=== PATIENT | male | born 1975 | race Caucasian/White ===

== ENCOUNTER 2023-12-07 19:24 | Emergency (ER) | payer OTHER ==
[2023-12-07 20:11] LABS: HCT 46.2 % (39.0-53.0); MCH 38.6 pg (25.0-35.0); MCHC 32.6 g/dL (31.0-37.0); MCV 118.3 fL (80.0-100.0); Macrocytosis Marked; RDW 14.8 % (11.5-15.5); WBC 2.6 k/uL (3.8-10.6)
[2023-12-07 20:23] LABS: INR 1.1 (<1.2); Prothrombin Time 11.5 sec (10.0-12.5)
[2023-12-07 20:30] LABS: ALT 98 U/L (4-49); AST 340 U/L (17-59); African American GFR (CKD) >90 (>60 ml/min/1.73 sqM); Albumin 4.4 g/dL (3.5-5.0); Alkaline Phosphatase 96 U/L (38-126); Anion Gap 15 mmol/L; Blood Urea Nitrogen 5 mg/dL (9-20); Calcium 9.1 mg/dL (8.4-10.2); Carbon Dioxide 22 mmol/L (22-30); Chloride 107 mmol/L (98-107); Glucose 100 mg/dL (74-99); Non-African American GFR(CKD) >90 (>60 ml/min/1.73 sqM); Potassium 3.2 mmol/L (3.5-5.1); Sodium 144 mmol/L (137-145); Total Bilirubin 1.3 mg/dL (0.2-1.3); Total Protein 7.4 g/dL (6.3-8.2)
--- NOTE | 2023-12-07 20:48 | ED ---
Dizziness HPI - General Source: patient, family, EMS, RN notes reviewed Mode of arrival: EMS Limitations: no limitations <Victor Hugo Castelan - Last Filed: 12/07/23 20:48> <Rosy Sequeira - Last Filed: 12/08/23 01:34> - General Chief Complaint: Dizziness Stated Complaint: Numbness Arms and Neck Time Seen by Provider: 12/07/23 20:47 - History of Present Illness Initial Comments: Quick note 48-year-old male presenting to the ED with a chief complaint of paresthesias. Patient states this afternoon started to experience paresthesias of bilateral upper extremities. Also notes started to experience a headache as well. (Victor Hugo Castelan) - Related Data Allergies Allergy/AdvReac Type Severity Reaction Status Date / Time No Known Allergies Allergy Verified 12/07/23 19:56 Review of Systems ROS Other: All systems not noted in ROS Statement are negative. <Victor Hugo Castelan - Last Filed: 12/07/23 20:48> ROS Other: All systems not noted in ROS Statement are negative. <Rosy Sequeira - Last Filed: 12/08/23 01:34> ROS Statement: Those systems with pertinent positive or pertinent negative responses have been documented in the HPI. Past Medical History Additional Past Medical History / Comment(s): Alcoholism - Stage 3 liver cirrhosis Past Surgical History: No Surgical Hx Reported Smoking Status: Current every day smoker Past Alcohol Use History: Abuse, Daily, Heavy Past Drug Use History: Marijuana <Victor Hugo Castelan - Last Filed: 12/07/23 20:48> General Exam Limitations: no limitations <Victor Hugo Castelan - Last Filed: 12/07/23 20:48> - General Exam Comments Initial Comments: Visual Physical Exam Vital signs reviewed General: Well-appearing, nontoxic, no acute distress. Head: Normocephalic, atraumatic Eyes: PERRLA, EOMI ENT: Airway patent Chest: Nonlabored breathing Skin: No visual rash, normal skin tone Neuro: Alert and oriented 3 Musculoskeletal: No gross abnormalities (Victor Hugo Castelan) Course Vital Signs 12/07/23 12/07/23 12/08/23 19:52 22:57 00:10 Temperature 97.7 F 98.2 F Pulse Rate 124 H 113 H 101 H Respiratory 18 16 17 Rate Blood Pressure 127/93 141/76 163/114 O2 Sat by Pulse 98 99 98 Oximetry Medical Decision Making - Lab Data Result diagrams: 12/07/23 20:02 12/07/23 20:02 <Victor Hugo Castelan - Last Filed: 12/07/23 20:48> - Lab Data Result diagrams: 12/07/23 20:02 12/07/23 20:02 <HuaRosy Zaria - Last Filed: 12/08/23 01:34> - Medical Decision Making Quicknote portion performed. Signed Victor Hugo Castelan PA-C (Victor Hugo Castelan) Was pt. sent in by a medical professional or institution (, PA, FOREST RESOURCE SPECIALIST, urgent care, hospital, or penitentiary...) When possible be specific @ -[No] Did you speak to anyone other than the patient for history (EMS, parent, family, police, friend...)? What history was obtained from this source @ -[No] Did you review nursing and triage notes (agree or disagree)? Why? @ -[I reviewed and agree with nursing and triage notes] Were old charts reviewed (outside hosp., previous admission, EMS record, old EKG, old radiological studies, urgent care reports/EKG's, penitentiary records)? Report findings @ -[No old charts were reviewed] Differential Diagnosis (chest pain, altered mental status, abdominal pain women, abdominal pain men, vaginal bleeding, weakness, fever, dyspnea, syncope, headache, dizziness, GI bleed, back pain, seizure, CVA, palpatations, mental health, musculoskeletal)? @ -[not applicable] EKG interpreted by me (3pts min.). @ -Yes and demonstrates sinus tachycardia with a rate of 112. SC interval 116. QRS 86. QTc of 392. No acute ST segment elevations or depressions X-rays interpreted by me (1pt min.). @ -[None done] CT interpreted by me (1pt min.). @ -[None done] U/S interpreted by me (1pt. min.). @ -[None done] What testing was considered but not performed or refused? (CT, X-rays, U/S, labs)? Why? @ -[None] What meds were considered but not given or refused? Why? @ -[None] Did you discuss the management of the patient with other professionals (professionals i.e. , PA, FOREST RESOURCE SPECIALIST, lab, RT, psych nurse, social service technician, beeswax bleacher, teacher, parking regulation enforcement officer, family preservation caseworker)? Give summary @ -[No] Was smoking cessation discussed for >3mins.? @ -[No] Was critical care preformed (if so, how long)? @ -[No] Were there social determinants of health that impacted care today? How? (Homelessness, low income, unemployed, alcoholism, drug addiction, transportation, low edu. Level, literacy, decrease access to med. care, detention, rehab)? @ -[No] Was there de-escalation of care discussed even if they declined (Discuss DNR or withdrawal of care, Hospice)? DNR status @ -[No] What co-morbidities impacted this encounter? (DM, HTN, Smoking, COPD, CAD, Cancer, CVA, ARF, Chemo, Hep., AIDS, mental health diagnosis, sleep apnea, morbid obesity)? @ -[None] Was patient admitted / discharged? Hospital course, mention meds given and route, prescriptions, significant lab abnormalities, going to OR and other pertinent info. @ -[hospital course] Undiagnosed new problem with uncertain prognosis? @ -[No] Drug Therapy requiring intensive monitoring for toxicity (Heparin, Nitro, Insul in, Cardizem)? @ -[No] Were any procedures done? @ -[No] Diagnosis/symptom? @ -[default] Acute, or Chronic, or Acute on Chronic? @ -[default] Uncomplicated (without systemic symptoms) or Complicated (systemic symptoms)? @ -[default] Side effects of treatment? @ -[No] Exacerbation, Progression, or Severe Exacerbation? @ -[No] Poses a threat to life or bodily function? How? (Chest pain, USA, IA, pneumonia, PE, COPD, DKA, ARF, appy, cholecystitis, CVA, Diverticulitis, Homicidal, Suicidal, threat to staff... and all critical care pts) @ -[No] (Rosy Sequeira) - Lab Data Lab Results 12/07/23 12/07/23 12/07/23 Range/Units 20:02 20:02 20:02 WBC 2.6 L (3.8-10.6) k/uL RBC 3.90 L (4.30-5.90) m/uL Hgb 15.0 (13.0-17.5) gm/dL Hct 46.2 (39.0-53.0) % MCV 118.3 H (80.0-100.0) fL MCH 38.6 H (25.0-35.0) pg MCHC 32.6 (31.0-37.0) g/dL RDW 14.8 (11.5-15.5) % Plt Count 84 L (150-450) k/uL MPV 11.0 Neutrophils % (Manual) 45 % Lymphocytes % (Manual) 42 % Monocytes % (Manual) 9 % Eosinophils % (Manual) 3 % Basophils % (Manual) 1 % Neutrophils # (Manual) 1.17 L (1.3-7.7) k/uL Lymphocytes # (Manual) 1.09 (1.0-4.8) k/uL Monocytes # (Manual) 0.23 (0-1.0) k/uL Eosinophils # (Manual) 0.08 (0-0.7) k/uL Basophils # (Manual) 0.03 (0-0.2) k/uL Nucleated RBCs 0 (0-0) /100 WBC Manual Slide Review Performed Macrocytosis Marked A PT 11.5 (10.0-12.5) sec INR 1.1 (<1.2) Sodium 144 (137-145) mmol/L Potassium 3.2 L (3.5-5.1) mmol/L Chloride 107 (98-107) mmol/L Carbon Dioxide 22 (22-30) mmol/L Anion Gap 15 mmol/L BUN 5 L (9-20) mg/dL Creatinine 0.87 (0.66-1.25) mg/dL Est GFR (CKD-EPI)AfAm >90 (>60 ml/min/1.73 sqM) Est GFR (CKD-EPI)NonAf >90 (>60 ml/min/1.73 sqM) Glucose 100 H (74-99) mg/dL Calcium 9.1 (8.4-10.2) mg/dL Total Bilirubin 1.3 (0.2-1.3) mg/dL AST 340 H (17-59) U/L ALT 98 H (4-49) U/L Alkaline Phosphatase 96 (38-126) U/L Troponin I (0.000-0.034) ng/mL Total Protein 7.4 (6.3-8.2) g/dL Albumin 4.4 (3.5-5.0) g/dL Urine Color Urine Appearance (Clear) Urine pH (5.0-8.0) Ur Specific [place] (1.001-1.035) Urine Protein (Negative) Urine Glucose (UA) (Negative) Urine Ketones (Negative) Urine Blood (Negative) Urine Nitrite (Negative) Urine Bilirubin (Negative) Urine Urobilinogen (<2.0) mg/dL Ur Leukocyte Esterase (Negative) Urine RBC (0-5) /hpf Urine WBC (0-5) /hpf Amorphous Sediment (None) /hpf Hyaline Casts (0-2) /lpf Urine Mucus (None) /hpf 12/07/23 12/07/23 Range/Units 20:02 22:55 WBC (3.8-10.6) k/uL RBC (4.30-5.90) m/uL Hgb (13.0-17.5) gm/dL Hct (39.0-53.0) % MCV (80.0-100.0) fL MCH (25.0-35.0) pg MCHC (31.0-37.0) g/dL RDW (11.5-15.5) % Plt Count (150-450) k/uL MPV Neutrophils % (Manual) % Lymphocytes % (Manual) % Monocytes % (Manual) % Eosinophils % (Manual) % Basophils % (Manual) % Neutrophils # (Manual) (1.3-7.7) k/uL Lymphocytes # (Manual) (1.0-4.8) k/uL Monocytes # (Manual) (0-1.0) k/uL Eosinophils # (Manual) (0-0.7) k/uL Basophils # (Manual) (0-0.2) k/uL Nucleated RBCs (0-0) /100 WBC Manual Slide Review Macrocytosis PT (10.0-12.5) sec INR (<1.2) Sodium (137-145) mmol/L Potassium (3.5-5.1) mmol/L Chloride (98-107) mmol/L Carbon Dioxide (22-30) mmol/L Anion Gap mmol/L BUN (9-20) mg/dL Creatinine (0.66-1.25) mg/dL Est GFR (CKD-EPI)AfAm (>60 ml/min/1.73 sqM) Est GFR (CKD-EPI)NonAf (>60 ml/min/1.73 sqM) Glucose (74-99) mg/dL Calcium (8.4-10.2) mg/dL Total Bilirubin (0.2-1.3) mg/dL AST (17-59) U/L ALT (4-49) U/L Alkaline Phosphatase (38-126) U/L Troponin I <0.012 (0.000-0.034) ng/mL Total Protein (6.3-8.2) g/dL Albumin (3.5-5.0) g/dL Urine Color Dark Yellow Urine Appearance Clear (Clear) Urine pH 6.0 (5.0-8.0) Ur Specific [place] 1.022 (1.001-1.035) Urine Protein 1+ H (Negative) Urine Glucose (UA) Negative (Negative) Urine Ketones Negative (Negative) Urine Blood Negative (Negative) Urine Nitrite Negative (Negative) Urine Bilirubin 1+ H (Negative) Urine Urobilinogen 8.0 (<2.0) mg/dL Ur Leukocyte Esterase Negative (Negative) Urine RBC 1 (0-5) /hpf Urine WBC 3 (0-5) /hpf Amorphous Sediment Rare H (None) /hpf Hyaline Casts 117 H (0-2) /lpf Urine Mucus Occasional H (None) /hpf Disposition <Victor Hugo Castelan - Last Filed: 12/07/23 20:48> Is patient prescribed a controlled substance at d/c from ED?: No Time of Disposition: 23:54 <Rosy Sequeira - Last Filed: 12/08/23 01:34> Clinical Impression: Neck pain, Paresthesia and pain of both upper extremities Disposition: HOME SELF-CARE Condition: Stable Instructions (If sedation given, give patient instructions): Paresthesia (ED) Additional Instructions: Follow-up with your primary care doctor. Your labs are concerning for alcohol abuse and I recommend cutting down on the amount of alcohol that you drink. Ret urn to the emergency department for any new or worsening symptoms Referrals: Abhay Chaudhry MD [Primary Care Provider] - 1-2 days
[2023-12-07 21:10] LABS: Basophils # (M) 0.03 k/uL (0-0.2); Eosinophils # (M) 0.08 k/uL (0-0.7); Lymphocytes # (M) 1.09 k/uL (1.0-4.8); Monocytes # (M) 0.23 k/uL (0-1.0); Neutrophils # (M) 1.17 k/uL (1.3-7.7); Neutrophils % (M) 45 %; Nucleated Red Blood Cells 0 /100 WBC (0-0); Total Cells Counted 100
[2023-12-07 21:11] LABS: Platelet Count 84 k/uL (150-450)
--- NOTE | 2023-12-07 21:28 | CT ---
EXAMINATION TYPE: CT brain wo con DATE OF EXAM: 12/07/2023 COMPARISON: None INDICATION: Left side body numbness and headache x 5 days, high stress. hx of mini strokes. DLP: 1148.4 mGycm, Automated exposure control for dose reduction was used. CONTRAST: None CT of the brain is performed utilizing 3 mm thick sections through the posterior fossa and 3 mm thick sections through the remaining calvarium. Study is performed within 24 hours of arrival to the hosp ital. No abnormal hyperdensity is present to suggest an acute intracranial hemorrhage. No mass lesion is evident. No acute infarcts are evident. Periventricular white matter hypodensity is present, likely on the bas is of mild chronic appearing microvascular ischemic change. Ventricles and sulci are prominent for the patient age. Paranasal sinuses and mastoid air cells within the [id number] are clear. IMPRESSION: 1. Atrophy with some mild. Ventricular white matter ischemic type changes. 2. No acute intracranial process. Follow-up MRI can be performed as clinically indicated.
[2023-12-07 23:21] LABS: Amorphous Sediment,Urine Rare /hpf; Appearance,Urine Clear (Clear); Bilirubin,Urine 1+ (Negative); Blood,Urine Negative (Negative); Color,Urine Dark Yellow; Glucose,Urine (UA) Negative (Negative); Hyaline Casts,Urine 117 /lpf (0-2); Ketones,Urine Negative (Negative); Leukocyte Esterase,Urine Negative (Negative); Mucus,Urine Occasional /hpf; Nitrite,Urine Negative (Negative); Protein,Urine 1+ (Negative); RBC,Urine 1 /hpf (0-5); Specific Gravity,Urine 1.022 (1.001-1.035); WBC,Urine 3 /hpf (0-5)
[2023-12-08 00:11] VITALS: BP 163/114; PULSE 101; RESP 17; TEMP 98.2
== END 2023-12-08 00:18 | disposition home or self-care (01) ==
LOC: EC 19:24
DX: R20.2 Paresthesia of skin (principal); M54.2 Cervicalgia; F17.200 Nicotine dependence, unspecified, uncomplicated
CPT/HCPCS: 36415; 70450; 80053; 81001; 84484; 85025; 85610; 93005; 99285

== ENCOUNTER 2024-12-05 12:40 | Emergency (ER) | payer OTHER ==
[2024-12-05 12:45] LABS: Glucose,Whole Blood 214 mg/dL (70-110)
[2024-12-05] MEDS: NOREPINEPHRINE 32 MG in SODIUM CHLORIDE 0.9% 218 ML IV SCH (13:00)
[2024-12-05] MEDS: SODIUM CHLORIDE 0.9% 1,000 ML IV STA (13:04)
[2024-12-05] MEDS: PANTOPRAZOLE 40 MG/10 ML VIAL IVP STA (13:16)
--- NOTE | 2024-12-05 13:28 | XR ---
EXAMINATION TYPE: XR chest 1V portable DATE OF EXAM: 12/05/2024 1:06 PM COMPARISON: None CLINICAL INDICATION: Male, 49 years old with history of pain; [facility] TECHNIQUE: XR chest 1V portable Frontal view of the chest. FINDINGS: Lungs/Pleura: There is no evidence of pleural effusion, focal consolidation, or pneumothorax. Pulmonary vascularity: Unremarkable. Heart/mediastinum: Cardiomediastinal silhouette is unremarkable. Musculoskeletal: No acute osseous pathology. Other findings: None Lines/Tubes: Endotracheal tube with distal tip 6.4 cm above the fortunato. Nasogastric tube with its distal tip and side-port projecting under the diaphragm. IMPRESSION: e right-sided airspace opacities correlate for developing pneumonia [facility], , 12/05/2024 1:25 PM
[2024-12-05] MEDS: OCTREOTIDE 100 MCG/ML INJ IVP STA (13:32)
[2024-12-05] MEDS: OCTREOTIDE 500 MCG in SODIUM CHLORIDE 0.9% 250 ML IV STA (13:33)
[2024-12-05 13:44] LABS: HCT 23.7 % (39.6-50.0); HGB 7.6 g/dL (13.0-17.0); MCH 41.5 pg (27.0-32.0); MCHC 32.1 g/dL (32.0-37.0); MCV 129.5 fL (80.0-97.0); Platelet Count 166 10*3/uL (140-440); RBC 1.83 10*6/uL (4.40-5.60); RDW 15.9 % (11.5-14.5); WBC 16.60 10*3/uL (4.50-10.00)
[2024-12-05 13:48] LABS: Acetaminophen <10.0 ug/mL; African American GFR (CKD) 11 (>60 ml/min/1.73 sqM); Calcium 7.8 mg/dL (8.4-10.2); Chloride 88 mmol/L (98-107); Glucose 157 mg/dL (74-99); Lipase 181 U/L (23-300); Non-African American GFR(CKD) 10 (>60 ml/min/1.73 sqM); Sodium 125 mmol/L (137-145)
[2024-12-05 13:54] LABS: ABG PCO2 42 mmHg (35-45); ABG TCO2 9 mmol/L (19-24); Allen Test Performed? Yes
[2024-12-05 13:56] LABS: ABG HCO3 8 mmol/L (21-25); ABG PH 6.88 (7.35-7.45); ABG PO2 >420 mmHg (83-108)
[2024-12-05 14:01] LABS: Albumin 1.9 g/dL (3.5-5.0); Alkaline Phosphatase 188 U/L (38-126); Blood Urea Nitrogen 115 mg/dL (9-20); Carbon Dioxide <5 mmol/L (22-30); Magnesium 3.6 mg/dL (1.6-2.3); Potassium 5.4 mmol/L (3.5-5.1); Total Protein 4.7 g/dL (6.3-8.2)
[2024-12-05 14:02] LABS: ALT 39 U/L (4-49); AST 120 U/L (17-59)
[2024-12-05 14:04] LABS: Lactic Acid, Venous 18.3 mmol/L (0.7-2.0)
--- NOTE | 2024-12-05 14:05 | XR ---
EXAMINATION TYPE: XR chest 1V confirm line plcmt DATE OF EXAM: 12/05/2024 1:37 PM COMPARISON: Chest radiographs from same day CLINICAL INDICATION: Male, 49 years old with history of cental line placement; [facility] TECHNIQUE: XR chest 1V confirm line plcmt Frontal view of the chest. FINDINGS: Lungs/Pleura: There is no evidence of pleural effusion, focal consolidation, or pneumothorax. Pulmonary vascularity: Unremarkable. Heart/mediastinum: Cardiomediastinal silhouette is unremarkable. Musculoskeletal: No acute osseous pathology. Other findings: None Lines/Tubes: Endotracheal tube with distal tip 6.8 cm above the fortunato. Nasogastric tube with its distal tip and side-port projecting under the diaphragm. Right internal jugular central venous catheter with distal tip at the cavoatrial junction. IMPRESSION: Right-sided airspace opacities remain. [facility], , 12/05/2024 2:03 PM
[2024-12-05] MEDS: SODIUM CHLORIDE 0.9% 1,000 ML IV SCH (14:28)
[2024-12-05 14:40] LABS: INR 2.2 (<1.2); Prothrombin Time 22.1 sec (10.0-12.5)
[2024-12-05 14:44] LABS: Partial Thromboplastin Time 72.0 sec (22.0-30.0)
[2024-12-05] MEDS: VASOPRESSIN 60 UNIT in SODIUM CHLORIDE 0.9% 150 ML IV SCH (15:08)
--- NOTE | 2024-12-05 15:17 | ED ---
CPR HPI - General Chief Complaint: Cardiac Arrest/CPR Stated Complaint: Cardiac Arrest Time Seen by Provider: 12/05/24 12:45 Source: patient Mode of arrival: EMS - History of Present Illness Initial Comments: 49-year-old male with history of alcoholism who presents to the emergency department as a cardiac arrest. Patient was seen 40 minutes prior to EMS arriving on scene. They were called to the house for an unresponsive male. When they got there they found that the patient was in asystole. CPR was started at 11:38 AM. Patient was intubated with an LMA. At 11:59, they did regain pulses after the patient was given 4 doses of epinephrine. Glucose was found to be low and therefore he was given an amp of dextrose. Patient arrives being bagged through an LMA. Unable to obtain ET tube on scene due to copious blood coming from the patient's mouth. He does have palpable carotid and femoral pulses. Pupils are fixed. Patient has no spontaneous movements or respirations. Patient is jaundiced with scleral icterus. Upon speaking with family they state that the patient typically drinks two 5th of alcohol every day. His last drink was a week ago. He was diagnosed with stage IV liver cirrhosis. Family does believe he takes medication for hypertension. Remainder of history is unknown due to current mental status. - Related Data Home Medications Medication Instructions Recorded Confirmed No Known Home Medications 12/05/24 12/05/24 Allergies Allergy/AdvReac Type Severity Reaction Status Date / Time No Known Allergies Allergy Verified 12/05/24 14:40 Review of Systems ROS Statement: Those systems with pertinent positive or pertinent negative responses have been documented in the HPI. ROS Other: All systems not noted in ROS Statement are negative. Past Medical History Additional Past Medical History / Comment(s): Alcoholism - Stage 3 liver cirrhosis Past Surgical History: No Surgical Hx Reported Smoking Status: Current every day smoker Past Alcohol Use History: Abuse, Daily, Heavy Past Drug Use History: Marijuana General Exam Limitations: altered mental status General appearance: obtunded Head exam: Present: other (Healed scabs on the top of his head) Eye exam: Present: scleral icterus, other (4 mm, nonreactive) ENT exam: Present: other (copious dark blood coming from mouth) Neck exam: Present: normal inspection. Absent: tenderness, meningismus, lymphadenopathy Respiratory exam: Present: other (being bagged) Cardiovascular Exam: Present: normal rhythm, bradycardia GI/Abdominal exam: Present: distended, other (fluid wave) Extremities exam: Present: normal inspection, full ROM, normal capillary refill. Absent: tenderness, pedal edema, joint swelling, calf tenderness Neurological exam: Present: altered Skin exam: Present: other (jaundice) Course Vital Signs 12/05/24 12/05/24 12/05/24 12:42 12:50 12:51 Temperature Pulse Rate 56 L Respiratory 12 Rate Blood Pressure 95/84 61/43 O2 Sat by Pulse 100 100 Oximetry Fraction of 100 Inspired Oxygen (FIO2) 12/05/24 12/05/24 12/05/24 13:01 13:11 13:23 Temperature 87.4 F L 88.3 F L Pulse Rate 54 L 56 L Respiratory 35 H 12 Rate Blood Pressure 64/31 64/44 O2 Sat by Pulse 100 100 Oximetry Fraction of 100 Inspired Oxygen (FIO2) 12/05/24 12/05/24 12/05/24 13:30 13:46 13:53 Temperature 88.0 F L 88.0 F L Pulse Rate 56 L 57 L 59 L Respiratory 12 16 12 Rate Blood Pressure 77/35 73/40 74/46 O2 Sat by Pulse 100 100 100 Oximetry Fraction of Inspired Oxygen (FIO2) 12/05/24 14:06 Temperature Pulse Rate Respiratory Rate Blood Pressure O2 Sat by Pulse Oximetry Fraction of 60 Inspired Oxygen (FIO2) Procedures - Central Line Placement Right IJ Consent Obtained: emergent situation Patient Placed on Monitor/Pulse Ox: No MD Prep: mask, gown, gloves Central Line Prep: Chlorhexidine scrub Ultrasound Used for Placement: Yes Central Line Lumen Inserted: triple Bloods Obtained for Lab: Yes Central Line Position: good blood return, all ports aspirated, flushed, capped, sutured in place with nylon Post Procedure X-Ray: tip of catheter in good position Patient Tolerated Procedure: well, no complications - Intubation ET Tube Size: 7.5 ET Tube Uncuffed: No Tube Secured Depth (cm): 24 Tube Secured Location: teeth Tube Placement Confirmation: visualized tube passing through cords, equal breath sounds bilaterally, no breath sounds over epigastrium, confirmation by capnometry Patient Tolerated Procedure: well, no complications Intubation Complications: none Medical Decision Making - Medical Decision Making Was pt. sent in by a medical professional or institution (, PA, IMPROVEMENT ENGINEER, urgent care, hospital, or penitentiary...) When possible be specific @ -No Did you speak to anyone other than the patient for history (EMS, parent, family, police, friend...)? What history was obtained from this source @ -I spoke with EMS and the sister for history Did you review nursing and triage notes (agree or disagree)? Why? @ -I reviewed and agree with nursing and triage notes Were old charts reviewed (outside hosp., previous admission, EMS record, old EKG, old radiological studies, urgent care reports/EKG's, penitentiary records)? Report findings @ -I reviewed ED note from December 06 of last year where patient was seen for neck pain Differential Diagnosis (chest pain, altered mental status, abdominal pain women, abdominal pain men, vaginal bleeding, weakness, fever, dyspnea, syncope, headache, dizziness, GI bleed, back pain, seizure, CVA, palpatations, mental health, musculoskeletal)? @ -Differential Altered Mental Status: Hypoglycemia, DKA, hypercapnia, ETOH, overdose, CO poisoning, trauma, myxedema coma, HTN encephalopathy, infection, encephalitis, psychosis, intercranial hemorrhage, hepatic encephalopathy, meningitis, CVA, this is not meant to be an all-inclusive list EKG interpreted by me (3pts min.). @ -EKG demonstrates sinus rhythm with a rate of 70. FL interval 158. QRS 99. QTc of 582. No acute ST segment elevations or depressions X-rays interpreted by me (1pt min.). @ -yes demonstrates placement of ET 6.4 cm above fortunato. Appropriate placement of central line and NG tube CT interpreted by me (1pt min.). @ -None done U/S interpreted by me (1pt. min.). @ -None done What testing was considered but not performed or refused? (CT, X-rays, U/S, labs)? Why? @ -CT brain however patient does require transfer for GI capabilities and therefore patient will be transferred [facility] What meds were considered but not given or refused? Why? @ -None Did you discuss the management of the patient with other professionals (professionals i.e. , LASHELL, IMPROVEMENT ENGINEER, lab, RT, psych nurse, social media analyst, meatman, teacher, police commanding officer, case supervisor)? Give summary @ -Spoke with Dr. Peterson at [facility] Was smoking cessation discussed for >3mins.? @ -No Was critical care preformed (if so, how long)? @ -45 minutes for management of postarrest patient with upper GI bleed and multiorgan failure Were there social determinants of health that impacted care today? How? (Homelessness, low income, unemployed, alcoholism, drug addiction, transportation, low edu. Level, literacy, decrease access to med. care, alf, rehab)? @ -Alcoholism Was there de-escalation of care discussed even if they declined (Discuss DNR or withdrawal of care, Hospice)? DNR status @ -Yes, family requests that no more CPR be performed on the patient What co-morbidities impacted this encounter? (DM, HTN, Smoking, COPD, CAD, Cancer, CVA, ARF, Chemo, Hep., AIDS, mental health diagnosis, sleep apnea, morbid obesity)? @ -Hypertension, alcoholism Was patient admitted / discharged? Hospital course, mention meds given and route, prescriptions, significant lab abnormalities, going to OR and other pertinent info. @ -Upon arrival patient seen and evaluated in trauma 2. Thorough history is obtained from EMS. He has been giving an amp of dextrose and 4 epi. Patient does have palpable carotid pulse. He is placed on continuous pulse ox and cardiac monitoring. The patient's LMA is exchanged for a 7.5 Hungarian ET tube which is 24 cm at the teeth. I do suction out approximately 200 cc of dark blood. Chest x-ray is performed which demonstrates appropriate placement of the NG tube. ET tube is 6.4 cm above fortunato. Does have 2 20-gauge peripheral IVs. Central line is placed in the right IJ. Patient is hypotensive and therefore does receive 2 L of normal saline followed by 2 units of unmatched blood. La boratory studies are performed. I did speak with family. Patient does present with significant upper GI bleeding therefore he is given 1 g of Rocephin, 80 mg of Protonix and is started on an octreotide drip. He continues to remain hypotensive and therefore the patient was started on Levophed, followed by vasopressin gtt. patient remains without any neurologic activity and therefore does not require sedation. We do not have GI services available at our facility. Sisters are at bedside and states that they do not want the patient to have any CPR. I informed them that we we will be unable to keep the patient at our facility unless he goes comfort care as we do not have GI services. They would like to pursue further care and therefore do request [facility] for transfer. I spoke with Dr. Peterson accept the patient at [facility]. Patient is transferred in stable condition with a very guarded prognosis. We did attempt to obtain a urinalysis however the patient does not have any urine output. He is started on 200 cc of normal saline per hour Undiagnosed new problem with uncertain prognosis? @ -No Drug Therapy requiring intensive monitoring for toxicity (Heparin, Nitro, Insulin, Cardizem)? @ -Levophed, vasopressin, octreotide Were any procedures done? @ -Intubation, central line Diagnosis/symptom? @ -Acute cardiac arrest, acute upper GI bleed, acute kidney injury, lactic acidosis, leukocytosis, hyperammonemia, transaminitis, history of alcoholism Acute, or Chronic, or Acute on Chronic? @ -Acute Uncomplicated (without systemic symptoms) or Complicated (systemic symptoms)? @ -Complicated Side effects of treatment? @ -No Exacerbation, Progression, or Severe Exacerbation? @ -No Poses a threat to life or bodily function? How? (Chest pain, [place], [place], pneumonia, PE, COPD, DKA, ARF, appy, cholecystitis, CVA, Diverticulitis, Homicidal, Suicidal, threat to staff... and all critical care pts) @ -yes as patient is s/p cardiac arrest - Lab Data Result diagrams: 12/05/24 12:45 12/05/24 12:45 Lab Results 12/05/24 12/05/24 12/05/24 Range/Units 12:44 12:45 12:45 WBC 16.60 H (4.50-10.00) 10*3/uL RBC 1.83 L (4.40-5.60) 10*6/uL Hgb 7.6 L (13.0-17.0) g/dL Hct 23.7 L (39.6-50.0) % MCV 129.5 H (80.0-97.0) fL MCH 41.5 H (27.0-32.0) pg MCHC 32.1 (32.0-37.0) g/dL Plt Count 166 (140-440) 10*3/uL MPV 11.4 (9.5-12.2) fL Immature Gran % (Auto) 9.2 % Immature Gran # 1.53 H (0.00-0.04) 10*3/uL PT 22.1 H (10.0-12.5) sec INR 2.2 H (<1.2) APTT 72.0 H (22.0-30.0) sec Sample Site ABG pH (7.35-7.45) ABG pCO2 (35-45) mmHg ABG pO2 (83-108) mmHg ABG HCO3 (21-25) mmol/L ABG Total CO2 (19-24) mmol/L ABG O2 Saturation (94-97) % ABG Base Excess mmol/L August Test Hemoglobin (13.0-17.5) gm/dL FiO2 % Sodium (137-145) mmol/L Potassium (3.5-5.1) mmol/L Chloride (98-107) mmol/L Carbon Dioxide (22-30) mmol/L Anion Gap mmol/L BUN (9-20) mg/dL Creatinine (0.66-1.25) mg/dL Est GFR (CKD-EPI)AfAm (>60 ml/min/1.73 sqM) Est GFR (CKD-EPI)NonAf (>60 ml/min/1.73 sqM) Glucose (74-99) mg/dL POC Glucose (mg/dL) 214 H (70-110) mg/dL POC Glu Clip And Hanger Attacher ID Joe Martines Plasma Lactic Acid Yaya (0.7-2.0) mmol/L Calcium (8.4-10.2) mg/dL Magnesium (1.6-2.3) mg/dL Total Bilirubin (0.2-1.3) mg/dL AST (17-59) U/L ALT (4-49) U/L Alkaline Phosphatase (38-126) U/L Ammonia (<30) umol/L Troponin I (0.000-0.034) ng/mL Total Protein (6.3-8.2) g/dL Albumin (3.5-5.0) g/dL Lipase (23-300) U/L Acetaminophen ug/mL Serum Alcohol mg/dL Blood Type Recheck Bld Type Recheck Status Crossmatch 12/05/24 12/05/24 12/05/24 Range/Units 12:45 12:45 12:45 WBC (4.50-10.00) 10*3/uL RBC (4.40-5.60) 10*6/uL Hgb (13.0-17.0) g/dL Hct (39.6-50.0) % MCV (80.0-97.0) fL MCH (27.0-32.0) pg MCHC (32.0-37.0) g/dL Plt Count (140-440) 10*3/uL MPV (9.5-12.2) fL Immature Gran % (Auto) % Immature Gran # (0.00-0.04) 10*3/uL PT (10.0-12.5) sec INR (<1.2) APTT (22.0-30.0) sec Sample Site ABG pH (7.35-7.45) ABG pCO2 (35-45) mmHg ABG pO2 (83-108) mmHg ABG HCO3 (21-25) mmol/L ABG Total CO2 (19-24) mmol/L ABG O2 Saturation (94-97) % ABG Base Excess mmol/L August Test Hemoglobin (13.0-17.5) gm/dL FiO2 % Sodium 125 L (137-145) mmol/L Potassium 5.4 H (3.5-5.1) mmol/L Chloride 88 L (98-107) mmol/L Carbon Dioxide <5 L* (22-30) mmol/L Anion Gap mmol/L BUN 115 H* (9-20) mg/dL Creatinine 6.04 H (0.66-1.25) mg/dL Est GFR (CKD-EPI)AfAm 11 (>60 ml/min/1.73 sqM) Est GFR (CKD-EPI)NonAf 10 (>60 ml/min/1.73 sqM) Glucose 157 H (74-99) mg/dL POC Glucose (mg/dL) (70-110) mg/dL POC Glu Clip And Hanger Attacher ID Plasma Lactic Acid Yaya 18.3 H* (0.7-2.0) mmol/L Calcium 7.8 L (8.4-10.2) mg/dL Magnesium 3.6 H (1.6-2.3) mg/dL Total Bilirubin 16.8 H* (0.2-1.3) mg/dL AST 120 H (17-59) U/L ALT 39 (4-49) U/L Alkaline Phosphatase 188 H (38-126) U/L Ammonia 854 H (<30) umol/L Troponin I <0.012 (0.000-0.034) ng/mL Total Protein 4.7 L (6.3-8.2) g/dL Albumin 1.9 L (3.5-5.0) g/dL Lipase 181 (23-300) U/L Acetaminophen <10.0 ug/mL Serum Alcohol <10 mg/dL Blood Type Recheck Bld Type Recheck Status Crossmatch 12/05/24 12/05/24 Range/Units 12:45 13:48 WBC (4.50-10.00) 10*3/uL RBC (4.40-5.60) 10*6/uL Hgb (13.0-17.0) g/dL Hct (39.6-50.0) % MCV (80.0-97.0) fL MCH (27.0-32.0) pg MCHC (32.0-37.0) g/dL Plt Count (140-440) 10*3/uL MPV (9.5-12.2) fL Immature Gran % (Auto) % Immature Gran # (0.00-0.04) 10*3/uL PT (10.0-12.5) sec INR (<1.2) APTT (22.0-30.0) sec Sample Site r rad ABG pH 6.88 L* (7.35-7.45) ABG pCO2 42 (35-45) mmHg ABG pO2 >420 H (83-108) mmHg ABG HCO3 8 L* (21-25) mmol/L ABG Total CO2 9 L (19-24) mmol/L ABG O2 Saturation 99.7 H (94-97) % ABG Base Excess -24.3 mmol/L August Test Yes Hemoglobin 9.2 L (13.0-17.5) gm/dL FiO2 100 % Sodium (137-145) mmol/L Potassium (3.5-5.1) mmol/L Chloride (98-107) mmol/L Carbon Dioxide (22-30) mmol/L Anion Gap mmol/L BUN (9-20) mg/dL Creatinine (0.66-1.25) mg/dL Est GFR (CKD-EPI)AfAm (>60 ml/min/1.73 sqM) Est GFR (CKD-EPI)NonAf (>60 ml/min/1.73 sqM) Glucose (74-99) mg/dL POC Glucose (mg/dL) (70-110) mg/dL POC Glu Clip And Hanger Attacher ID Plasma Lactic Acid Yaya (0.7-2.0) mmol/L Calcium (8.4-10.2) mg/dL Magnesium (1.6-2.3) mg/dL Total Bilirubin (0.2-1.3) mg/dL AST (17-59) U/L ALT (4-49) U/L Alkaline Phosphatase (38-126) U/L Ammonia (<30) umol/L Troponin I (0.000-0.034) ng/mL Total Protein (6.3-8.2) g/dL Albumin (3.5-5.0) g/dL Lipase (23-300) U/L Acetaminophen ug/mL Serum Alcohol mg/dL Blood Type Recheck No Previous Record Bld Type Recheck Status CABO Indicated Crossmatch See Detail Disposition Clinical Impression: Cardiac arrest, Upper GI bleed, Lactic acidosis, Leukocytosis, Anemia, Hype rammonemia, DAVID (acute kidney injury), Hypotension Disposition: OTHER INSTITUTION NOT DEFINED Condition: Critical Is patient prescribed a controlled substance at d/c from ED?: No Referrals: Abhay Chaudhry MD [Primary Care Provider] - 1-2 days Time of Disposition: 15:23 - Out of Hospital Transfer - Req. Specs Out of Hospital Transfer - Requested Specifics: Other Emergency Center ([facility]
[2024-12-05 15:37] VITALS: TEMP 89.6
[2024-12-05 15:40] LABS: Lymphocytes # (M) 2.32 k/uL (1.0-4.8); Metamyelocytes # (M) 0.33 k/uL (0); Monocytes # (M) 0.50 k/uL (0-1.0); Myelocytes # (M) 0.50 k/uL (0); Neutrophils # (M) 12.95 k/uL (1.3-7.7); Neutrophils % (M) 78 %; Total Cells Counted 100
[2024-12-05 15:48] VITALS: BP 73/48; PULSE 68; RESP 21
== END 2024-12-05 16:01 | disposition other institution (70) ==
LOC: EC 12:40
DX: I46.9 Cardiac arrest, cause unspecified (principal); D64.9 Anemia, unspecified; D72.829 Elevated white blood cell count, unspecified; E87.20 Acidosis, unspecified; K92.2 Gastrointestinal hemorrhage, unspecified; N17.9 Acute kidney failure, unspecified; I95.9 Hypotension, unspecified; E72.20 Disorder of urea cycle metabolism, unspecified; I10 Essential (primary) hypertension; F17.200 Nicotine dependence, unspecified, uncomplicated
CPT/HCPCS: 36415; 36600; 94002; 93005; 86900; 86901; 80053; 82140; 82805; 83605; 83690; 83735; 84484; 85025; 85610; 85730; 86850; 86920; 80143; 80320; 87070; 87205; 71045; 99291; 31500; 36556; 36430; 96365; 96366 ×2; 96368; 96375; P9016; J2354 ×2; J0696; J2470